=== PATIENT | female | born 1980 | race Caucasian/White ===

== ENCOUNTER 2022-06-23 07:22 | Emergency (ER) | payer MEDICAID ==
[~2022-06-23] VITALS: Ht 170.2 cm; Wt 77.0 kg
[2022-06-23] MEDS ORDERED: CYCLOBENZAPRINE 10MG TABLET PO ONE (10:30)
[2022-06-23] MEDS ORDERED: KETOROLAC 60MG/2ML VIAL IM ONE (10:30)
[2022-06-23 10:44] VITALS: BP 133/89
[2022-06-23] MEDS ORDERED: CYCL5TAB MT (15:05)
[2022-06-23] MEDS ORDERED: IBUP-2028 MT (15:06)
== END 2022-06-23 15:25 | disposition home or self-care (01) ==
LOC: ER 07:22
DX: S06.0X0A Concussion without loss of consciousness, initial encounter (principal); S16.1XXA Strain of muscle, fascia and tendon at neck level, initial encounter; E11.9 Type 2 diabetes mellitus without complications; V43.52XA Car driver injured in collision with other type car in traffic accident, initial encounter; Y93.89 Activity, other specified; Y92.411 Interstate highway as the place of occurrence of the external cause
CPT/HCPCS: 70450; 73060; 73090; 73560; 96372; 99284; J1885